=== PATIENT | male | born 1970 | race Caucasian/White ===

== ENCOUNTER 2016-04-05 14:18 | Emergency (ER) | payer SELFPAY ==
[~2016-04-05] VITALS: Ht 177.8 cm; Wt 99.8 kg
[2016-04-05 16:45] LABS: BASOPHILS # (AUTO) 0.1 /CMM (0.0-0.2); BASOPHILS % (AUTO) 1.2 % (0.0-2.0); DIFF TOTAL % 100 %; EOSINOPHILS # (AUTO) 0.1 /CMM (0.0-0.7); EOSINOPHILS % (AUTO) 1.7 % (0.0-6.0); HEMATOCRIT 43 % (39-51); HEMOGLOBIN 14.2 g/dL (13.5-17.5); LYMPHOCYTES # (AUTO) 2.6 /CMM (0.8-4.8); LYMPHOCYTES % (AUTO) 29.1 % (20.0-44.0); MEAN CORPUSCULAR HEMOGLOBIN 28 PG (26.0-33.0); MEAN CORPUSCULAR HGB CONC 33 g/dl (31.0-36.0); MEAN CORPUSCULAR VOLUME 85 fL (80-96); MONOCYTES # (AUTO) 0.8 /CMM (0.1-1.30); MONOCYTES % (AUTO) 8.7 % (2.0-12.0); NEUTROPHILS # (AUTO) 5.2 /CMM (1.8-8.9); NEUTROPHILS % (AUTO) 59.3 % (43.0-81.0); PLATELET COUNT (AUTO) 332 /CMM (150-450); RED BLOOD CELL COUNT(AUTO) 5.04 MIL/uL (4.5-6.0); WHITE BLOOD COUNT (AUTO) 8.8 K/uL (4.3-11.0)
[2016-04-05 16:52] LABS: CALCIUM, SERUM 8.8 mg/dL (8.5-10.1); POTASSIUM 4.1 mmol/L (3.5-5.1)
[2016-04-05 16:58] LABS: ALBUMIN 3.4 g/dL (3.4-5.0); BILIRUBIN,TOTAL 0.2 mg/dL (0.2-1.0); TOTAL PROTEIN, SERUM 7.3 g/dL (6.4-8.2)
[2016-04-05 16:59] LABS: INDIRECT BILIRUBIN 0.2 mg/dL (0.0-1.1)
[2016-04-05 17:05] LABS: LACTIC ACID 0.8 mmol/L (0.4-2.0)
[2016-04-05] MEDS ORDERED: IOHEXOL-300 100 ML VIAL IV ONE (17:12)
[2016-04-05] MEDS ORDERED: IV NS 0.9% 250 ML IV ONE (17:12)
[2016-04-05] MEDS ORDERED: CT SWABBABLE VALVE TRANS SET 1 EA INFUS.SET MC ONE (17:12)
[2016-04-05 18:14] LABS: ADD UA MICROSCOPIC NO; KETONES,URINE NEGATIVE (NEGATIVE); LEUKOCYTE ESTERASE ,URINE NEGATIVE (NEGATIVE); PH,URINE 6.5 (5.0-8.0)
[2016-04-05 18:51] VITALS: BP 122/79
== END 2016-04-05 18:53 | disposition home or self-care (01) ==
LOC: ER 14:21
DX: L03.315 Cellulitis of perineum (principal)
CPT/HCPCS: 36415; 72193; 80048; 80076; 81001; 83605; 85025; 87040 ×2; 87086; 87491; 87591; 99285; A4606; J7050; Q9967; Z7610; 81000-TC

== ENCOUNTER 2016-04-05 21:30 | Inpatient (IN) | payer SELFPAY ==
[~2016-04-05] VITALS: Ht 172.7 cm; Wt 103.4 kg
[2016-04-05] MEDS ORDERED: ACETAMINOPHEN ES 500 MG TABLET ONE (21:50)
[2016-04-05] MEDS ORDERED: VANCOMYCIN 1 GM VIAL ONE (21:50)
[2016-04-05] MEDS ORDERED: PIPERACILLIN /TAZOBACTAM 3.375 G VIAL IV ONE (21:50)
[2016-04-05] MEDS ORDERED: IV D5W 50 ML IV ONE (21:51)
[2016-04-05] MEDS ORDERED: IV SET PRIMARY 1 EA INFUS.SET MC ONE (21:51)
[2016-04-05] MEDS ORDERED: IV D5W 250 ML IV ONE (21:51)
[2016-04-05] MEDS ORDERED: IV SET PRIMARY PUMP SET 1 EA INFUS.SET MC ONE (21:51)
[2016-04-05] MEDS ORDERED: IV NS 0.9% 1,000 ML ONE (21:51)
[2016-04-05] MEDS ORDERED: PIPERACILLIN /TAZOBACTAM 3.375 G in IV D5W 50 ML IV ONE (22:00)
[2016-04-05] MEDS ORDERED: IV NS 0.9% 1,000 ML BAG IV ONE (22:00)
[2016-04-05] MEDS ORDERED: ACETAMINOPHEN ES 500 MG TABLET PO ONE (22:00)
[2016-04-05] MEDS ORDERED: VANCOMYCIN 1 GM in IV D5W 250 ML IV ONE (22:00)
[2016-04-05] MEDS ORDERED: IV NS 0.9% 1,000 ML IV PRN (22:33)
[2016-04-05 23:00] VITALS: BP 133/81
[2016-04-05] MEDS ORDERED: Z GUARD REMEDY 2 OZ OINT TP PRN (23:00)
[2016-04-05] MEDS ORDERED: MAG HYDROX/AL HYDROX/SIMETH 30 ML UDC PO PRN (23:00)
[2016-04-05] MEDS ORDERED: ZOLPIDEM TARTRATE 5 MG TABLET PO PRN (23:00)
[2016-04-05] MEDS ORDERED: ENOXAPARIN SODIUM 40 MG/0.4 ML DISP.SYRIN SQ SCH (23:00)
[2016-04-05] MEDS ORDERED: ACETAMINOPHEN 325 MG TABLET PO PRN (23:00)
[2016-04-05] MEDS ORDERED: ONDANSETRON HCL/PF 4 MG/2 ML VIAL IVP PRN (23:00)
[2016-04-05] MEDS ORDERED: MAGNESIUM HYDROXIDE 30 ML UDC PO PRN (23:00)
[2016-04-05 23:38] VITALS: BP 133/81
[2016-04-06] MEDS ORDERED: IV SET PRIMARY PUMP SET 1 EA INFUS.SET MC ONE (03:54)
[2016-04-06] MEDS ORDERED: IV NS 0.9% 1,000 ML ONE (03:54)
[2016-04-06 06:39] LABS: BASOPHILS % (AUTO) 0.2 % (0.0-2.0); DIFF TOTAL % 100 %; EOSINOPHILS # (AUTO) 0.1 /CMM (0.0-0.7); EOSINOPHILS % (AUTO) 0.5 % (0.0-6.0); HEMATOCRIT 41 % (39-51); HEMOGLOBIN 13.8 g/dL (13.5-17.5); LYMPHOCYTES # (AUTO) 2.1 /CMM (0.8-4.8); LYMPHOCYTES % (AUTO) 12.8 % (20.0-44.0); MEAN CORPUSCULAR HEMOGLOBIN 29 PG (26.0-33.0); MEAN CORPUSCULAR HGB CONC 34 g/dl (31.0-36.0); MEAN CORPUSCULAR VOLUME 86 fL (80-96); MONOCYTES # (AUTO) 1.1 /CMM (0.1-1.30); MONOCYTES % (AUTO) 6.5 % (2.0-12.0); NEUTROPHILS # (AUTO) 12.9 /CMM (1.8-8.9); PLATELET COUNT (AUTO) 313 /CMM (150-450); RED BLOOD CELL COUNT(AUTO) 4.79 MIL/uL (4.5-6.0); WHITE BLOOD COUNT (AUTO) 16.1 K/uL (4.3-11.0)
[2016-04-06 06:48] LABS: CALCIUM, SERUM 8.6 mg/dL (8.5-10.1); CREATININE 0.9 mg/dL (0.6-1.3); PHOSPHORUS 4.2 mg/dL (2.5-4.9); POTASSIUM 4.4 mmol/L (3.5-5.1)
[2016-04-06 08:00] VITALS: BP 127/65
[2016-04-06] MEDS ORDERED: FEE PK DOSING 1 MIN EA MC ONE (08:31)
[2016-04-06] MEDS ORDERED: SECONDARY IV SET 1 EA INFUS.SET MC ONE (10:06)
[2016-04-06] MEDS: PANTOPRAZOLE 40 MG TABLET.DR PO SCH (11:59)
[2016-04-06] MEDS: VANCOMYCIN 1.5 GM in IV D5W 500 ML IV SCH ×2 (12:00→22:23)
[2016-04-06 16:00] VITALS: BP 125/60
[2016-04-06] MEDS ORDERED: LIDOCAINE 1%-EPI 1:100,000 20 ML VIAL TP STA (16:45)
[2016-04-06 20:00] VITALS: BP 102/61
[2016-04-06] MEDS: MORPHINE SULFATE INJ 2 MG/ML DISP.SYRIN IV PRN (22:23)
[2016-04-06] MEDS: HYDROCODONE/APAP 5/325MG 1 EACH TABLET PO PRN (23:43)
[2016-04-07] MEDS: MORPHINE SULFATE INJ 2 MG/ML DISP.SYRIN IV PRN ×2 (04:34→11:50)
[2016-04-07 07:34] LABS: CALCIUM, SERUM 8.1 mg/dL (8.5-10.1); CREATININE 0.8 mg/dL (0.6-1.3)
[2016-04-07 08:00] VITALS: BP 120/68
[2016-04-07] MEDS: PANTOPRAZOLE 40 MG TABLET.DR PO SCH (10:17)
[2016-04-07] MEDS: HYDROCODONE/APAP 5/325MG 1 EACH TABLET PO PRN (10:21)
[2016-04-07] MEDS: VANCOMYCIN 1.5 GM in IV D5W 500 ML IV SCH ×2 (10:22→22:05)
[2016-04-07] MEDS ORDERED: HYDROCODONE/APAP 10/325MG 1 EA TABLET PO PRN (12:30)
[2016-04-07] MEDS: IV NS 0.9% 1,000 ML IV SCH ×2 (13:54→22:05)
[2016-04-07] MEDS: PIPERACILLIN /TAZOBACTAM 3.375 G in IV D5W 50 ML IV SCH ×3 (13:54→23:45)
[2016-04-07] MEDS ORDERED: SECONDARY IV SET 1 EA INFUS.SET MC ONE (13:55)
[2016-04-07] MEDS: DAKINS QUARTER STRENGTH (0.125%) 480 ML BOTTLE TOP SCH (13:56)
[2016-04-07 16:00] VITALS: BP 113/63
[2016-04-07] MEDS ORDERED: VANCOMYCIN 1.5 GM in IV D5W 500 ML IV SCH (18:00)
[2016-04-07 19:40] VITALS: BP 115/74
[2016-04-07 20:00] VITALS: BP 115/74
[2016-04-07] MEDS ORDERED: SENNOSIDES 8.6 MG TABLET PO SCH (22:00)
[2016-04-07] MEDS ORDERED: IV NS 0.9% 1,000 ML ONE (22:01)
[2016-04-07] MEDS: MORPHINE SULFATE INJ 4 MG/ML DISP.SYRIN IV PRN (22:25)
[2016-04-08] MEDS: PIPERACILLIN /TAZOBACTAM 3.375 G in IV D5W 50 ML IV SCH ×2 (05:42→12:30)
[2016-04-08] MEDS: HYDROCODONE/APAP 5/325MG 1 EACH TABLET PO PRN ×2 (06:30→13:20)
[2016-04-08 06:32] LABS: BASOPHILS % (AUTO) 0.3 % (0.0-2.0); DIFF TOTAL % 100 %; EOSINOPHILS # (AUTO) 0.3 /CMM (0.0-0.7); HEMATOCRIT 42 % (39-51); HEMOGLOBIN 13.9 g/dL (13.5-17.5); LYMPHOCYTES # (AUTO) 2.5 /CMM (0.8-4.8); LYMPHOCYTES % (AUTO) 18.9 % (20.0-44.0); MEAN CORPUSCULAR HEMOGLOBIN 29 PG (26.0-33.0); MEAN CORPUSCULAR HGB CONC 34 g/dl (31.0-36.0); MEAN CORPUSCULAR VOLUME 86 fL (80-96); MONOCYTES # (AUTO) 0.9 /CMM (0.1-1.30); MONOCYTES % (AUTO) 6.6 % (2.0-12.0); NEUTROPHILS # (AUTO) 9.4 /CMM (1.8-8.9); NEUTROPHILS % (AUTO) 72.2 % (43.0-81.0); PLATELET COUNT (AUTO) 319 /CMM (150-450); RED BLOOD CELL COUNT(AUTO) 4.83 MIL/uL (4.5-6.0)
[2016-04-08 07:05] LABS: CALCIUM, SERUM 8.5 mg/dL (8.5-10.1); CREATININE 0.9 mg/dL (0.6-1.3); POTASSIUM 4.6 mmol/L (3.5-5.1)
[2016-04-08 07:25] VITALS: BP 108/67
[2016-04-08] MEDS: PANTOPRAZOLE 40 MG TABLET.DR PO SCH (07:59)
[2016-04-08] MEDS: IV NS 0.9% 1,000 ML IV SCH (07:59)
[2016-04-08] MEDS: DAKINS QUARTER STRENGTH (0.125%) 480 ML BOTTLE TOP SCH (08:00)
[2016-04-08] MEDS: MORPHINE SULFATE INJ 4 MG/ML DISP.SYRIN IV PRN (09:27)
[2016-04-08] MEDS: VANCOMYCIN 1.5 GM in IV D5W 500 ML IV SCH (09:53)
[2016-04-08] MEDS ORDERED: LACT1CAP57 PO (11:45)
[2016-04-08] MEDS ORDERED: METR500T PO (11:45)
[2016-04-08] MEDS ORDERED: AMOX-430 PO (11:45)
== END 2016-04-08 14:50 | disposition home or self-care (01) | DRG 854 ==
LOC: ER 21:31 → MEDSG2 22:06
PROVIDERS: ADMIT Internal Medicine; ATTEND Internal Medicine
PROC: 0H99XZZ Drainage of Perineum Skin, External Approach (ICD-10-PCS; principal; 2016-04-06)
DX: A41.9 Sepsis, unspecified organism (principal); L03.315 Cellulitis of perineum; L03.317 Cellulitis of buttock; L02.215 Cutaneous abscess of perineum; F17.210 Nicotine dependence, cigarettes, uncomplicated; Z86.14 Personal history of Methicillin resistant Staphylococcus aureus infection; E78.5 Hyperlipidemia, unspecified; E66.9 Obesity, unspecified; K57.90 Diverticulosis of intestine, part unspecified, without perforation or abscess without bleeding; Z68.35 Body mass index [BMI] 35.0-35.9, adult
CPT/HCPCS: 36415; 80048-TC; 80202-TC; 83735-TC; 84100-TC; 85025-TC; 87070-TC; 87081-TC; A4606; A6253; A6402; A6403; A6407; J2270; J2543; J3370; J3490; J7030; J7060; Z7610

== ENCOUNTER 2016-04-09 11:30 | Emergency (ER) | payer SELFPAY ==
[~2016-04-09] VITALS: Ht 172.7 cm; Wt 103.0 kg
[~2016-04-09 11:30] MED LIST: AMOX-430 PO; LACT1CAP57 PO; METR500T PO
[2016-04-09 12:10] VITALS: BP 128/65
== END 2016-04-09 13:27 | disposition home or self-care (01) ==
LOC: ER 11:33
DX: Z48.01 Encounter for change or removal of surgical wound dressing (principal)
CPT/HCPCS: 99282; A4606; A6402; A6407; Z7610

== ENCOUNTER 2016-04-10 10:22 | Emergency (ER) | payer SELFPAY ==
[~2016-04-10] VITALS: Ht 172.7 cm; Wt 103.0 kg
[2016-04-10 10:28] VITALS: BP 112/67
== END 2016-04-10 11:35 | disposition home or self-care (01) ==
LOC: ER 10:25
DX: Z48.01 Encounter for change or removal of surgical wound dressing (principal); F17.210 Nicotine dependence, cigarettes, uncomplicated; F10.20 Alcohol dependence, uncomplicated
CPT/HCPCS: 99281; A4606; Z7610; Z7502

== ENCOUNTER 2019-02-21 14:18 | Emergency (ER) | payer BC ==
[~2019-02-21] VITALS: Ht 172.7 cm; Wt 113.4 kg
--- NOTE | 2019-02-21 14:43 | NUR ---
PT CAME INTO THE ED C/O COUGH W/ CONGESTION X 3 WEEKS. PT ALSO ENDORSES BILATERAL HAND PAIN AND NUMBNESS X 4 DAYS. PT AAOX4, VSS, BREATHING EVEN AND UNLABORED ON ROOM AIR W/ NAD. PT CONNECTED TO THE MONITOR AND POX
[2019-02-21] MEDS ORDERED: BENZONATATE 100 MG CAPSULE PO PRN (15:30)
[2019-02-21] MEDS ORDERED: IPRATROPIUM NEB FS 0.5 MG/2.5 ML AMPUL.NEB NEB ONE (15:30)
[2019-02-21] MEDS ORDERED: IV NS 0.9% 1,000 ML BAG IV ONE (15:30)
[2019-02-21] MEDS ORDERED: predniSONE 20 MG TABLET PO ONE (15:30)
[2019-02-21] MEDS ORDERED: ALBUTEROL FS 2.5 MG/3 ML VIAL.NEB NEB ONE (15:30)
[2019-02-21] MEDS ORDERED: predniSONE 20 MG TABLET ONE (15:32)
[2019-02-21 15:43] LABS: BASOPHILS # (AUTO) 0.1 /CMM (0.0-0.2); BASOPHILS % (AUTO) 1.5 % (0.0-2.0); EOSINOPHILS % (AUTO) 2.8 % (0.0-6.0); HEMATOCRIT 44 % (39-51); HEMOGLOBIN 14.5 g/dL (13.5-17.5); LYMPHOCYTES # (AUTO) 2.9 /CMM (0.8-4.8); LYMPHOCYTES % (AUTO) 37.1 % (20.0-44.0); MEAN CORPUSCULAR HGB CONC 33 g/dl (31.0-36.0); MEAN CORPUSCULAR VOLUME 87 fL (80-96); MONOCYTES # (AUTO) 0.9 /CMM (0.1-1.30); MONOCYTES % (AUTO) 11.2 % (2.0-12.0); NEUTROPHILS # (AUTO) 3.8 /CMM (1.8-8.9); NEUTROPHILS % (AUTO) 47.4 % (43.0-81.0); PLATELET COUNT (AUTO) 300 /CMM (150-450); WHITE BLOOD COUNT (AUTO) 7.9 K/uL (4.3-11.0)
--- NOTE | 2019-02-21 15:52 | NUR ---
RT AT BEDSIDE FOR BREATHING TREATMENT
[2019-02-21 16:05] LABS: CREATININE 0.9 mg/dL (0.6-1.3)
--- NOTE | 2019-02-21 16:45 | NUR ---
CALLED [facility] [phone] WILL GET IT IN A FEW MINS.
--- NOTE | 2019-02-21 17:08 | NUR ---
Patient discharged to home in stable condition. Written and verbal after care instructions given. Patient verbalizes understanding of instruction.IV removed. Catheter intact and site benign. Pressure and 4x4 applied to site. No bleeding noted.
[2019-02-21 17:09] VITALS: BP 128/72
== END 2019-02-21 17:10 | disposition home or self-care (01) ==
LOC: ER 14:18
DX: J18.9 Pneumonia, unspecified organism (principal); F10.10 Alcohol abuse, uncomplicated; F17.200 Nicotine dependence, unspecified, uncomplicated; Y90.9 Presence of alcohol in blood, level not specified; Z60.2 Problems related to living alone; Z79.899 Other long term (current) drug therapy
CPT/HCPCS: 36415; 71045; 80048; 85025; 94640; 99284; 99406; J7030; J7512